=== PATIENT | female | born 2005 ===

== ENCOUNTER 2024-03-29 10:21 | Emergency (ER) | payer BC ==
[2024-03-29 10:44] LABS: BASOPHILS ABSOLUTE AUTO 0.02 K/uL (0.00-0.30); BASOPHILS PERCENT AUTO 0.2 % (0.0-1.0); EOSINOPHILS ABSOLUTE AUTO 0.09 K/uL (0.00-0.70); EOSINOPHILS PERCENT AUTO 0.9 % (0.0-5.0); HEMATOCRIT 39.5 % (37.0-47.0); HEMOGLOBIN 13.5 g/dL (12.0-16.0); IMMATURE GRAN ABSOLUTE AUTO 0.02 K/uL (0.00-0.05); IMMATURE GRAN PERCENT AUTO 0.2 % (0.0-0.4); LYMPHOCYTES ABSOLUTE AUTO 1.78 K/uL (2.00-8.80); MEAN CORPUSCULAR HEMOGLOBIN 29.2 pg (28.0-32.0); MEAN CORPUSCULAR HGB CONC 34.2 g/dL (32.0-36.0); MEAN CORPUSCULAR VOLUME 85.5 fL (83.0-99.0); MEAN PLATELET VOLUME 8.7 fL (9.4-12.3); MONOCYTES ABSOLUTE AUTO 0.66 K/uL (0.10-1.40); MONOCYTES PERCENT AUTO 6.7 % (2.0-10.0); NEUTROPHILS ABSOLUTE AUTO 7.34 K/uL (1.50-8.50); PLATELET COUNT,PLT 267 K/uL (150-400); RED BLOOD CELL COUNT 4.62 M/uL (4.10-5.30); WHITE BLOOD CELL COUNT,WBC 9.91 K/uL (4.5-13.5)
[2024-03-29] MEDS: Sodium Chloride 0.9% 1,000 ML IV ONE (10:44)
[2024-03-29 11:00] LABS: APPEARANCE,URINE CLEAR; BILIRUBIN,URINE NEGATIVE (NEGATIVE); GLUCOSE,URINE NEGATIVE (NEGATIVE); KETONES,URINE NEGATIVE (NEGATIVE); LEUKOCYTE ESTERASE,URINE NEGATIVE (NEGATIVE); NITRITE,URINE NEGATIVE (NEGATIVE); OCCULT BLOOD,URINE NEGATIVE (NEGATIVE); PROTEIN,URINE NEGATIVE (NEGATIVE); UROBILINOGEN,URINE 0.2 EU/dL (<2.0)
[2024-03-29] MEDS: Ondansetron 4 MG/2 ML SDV IVPUSH ONE (11:00)
[2024-03-29] MEDS: Morphine 4 MG/ML Syringe IVPUSH ONE (11:00)
[2024-03-29 11:04] LABS: COLOR,URINE STRAW
[2024-03-29 11:15] LABS: A/G RATIO 0.9 (0.9-1.6); ALBUMIN 3.7 g/dL (3.4-5.0); BILIRUBIN TOTAL 0.2 mg/dL (0.2-1.0); CREATININE 0.9 mg/dL (0.6-1.0); EST CRCL DRUG DOSING (CG) 72.22 mL/min; POTASSIUM,K 3.7 mmol/L (3.5-5.1); PROTEIN TOTAL,TP 7.8 g/dL (6.4-8.2)
[2024-03-29 11:21] LABS: CALCIUM 9.5 mg/dL (8.5-10.1)
[2024-03-29] MEDS: Iopamidol 755 MG/ML 500 ML Multipack Bottle IVPUSH STA (12:42)
== END 2024-03-29 14:24 | disposition home or self-care (01) ==
LOC: MW.ED 10:21
DX: R10.31 Right lower quadrant pain (principal); Z79.899 Other long term (current) drug therapy; Z75.8 Other problems related to medical facilities and other health care
CPT/HCPCS: 36415; 74177; 80053; 81003; 81025; 83690; 85025; 96361; 96374; 96375; 99284; J2270; J2405; J7030; Q9967